=== PATIENT | male | born 1990 | race Caucasian/White ===

== ENCOUNTER 2017-10-13 14:23 | Outpatient (CLI) | payer OTHER | END 2017-10-13 14:33 | disposition home or self-care (01) | LOC: LAB 14:23 | DX: R51 Headache (principal); R42 Dizziness and giddiness ==

== ENCOUNTER 2017-10-13 14:33 | Outpatient (CLI) | payer OTHER | END 2017-10-13 14:42 | disposition home or self-care (01) | LOC: RAD 14:33 | DX: M54.2 Cervicalgia (principal) ==

== ENCOUNTER → 2017-10-13 | Outpatient (CLI) | payer OTHER ==
[~2017-10-13] VITALS: Ht 152.4 cm; Wt 58.1 kg
[~2017-10-13] MED LIST: AMOX1TAB12 PO; BUCALSEP SPRAY30 ML PO; CATAFLAM50 MG PO; DICLOFENAC POTA50 MG PO; FLEXERIL10 MG PO; GILTUSS TR TAB1 EACH PO; VOLTAREM 50 MG PO; ZITHROMAX500 MG PO
== END | disposition home or self-care (01) ==
LOC: PPHC 12:53
DX: R51 Headache (principal)

== ENCOUNTER → 2017-10-14 | Outpatient (CLI) | payer OTHER | END | disposition home or self-care (01) | LOC: PPHC 13:18 | DX: G44.89 Other headache syndrome (principal) ==

== ENCOUNTER 2017-11-04 15:02 | Outpatient (CLI) | payer OTHER | END 2017-11-04 16:10 | disposition home or self-care (01) | LOC: TOM 15:02 | DX: R51 Headache (principal) ==

== ENCOUNTER 2019-11-30 14:19 | Emergency (ER) | payer OTHER ==
[~2019-11-30] VITALS: Ht 167.6 cm; Wt 62.6 kg
== END 2019-11-30 17:42 | disposition home or self-care (01) ==
LOC: ER 14:19
DX: R10.13 Epigastric pain (principal)